=== PATIENT | female | born 1990 | race African-American/Black ===

== ENCOUNTER 2020-10-28 21:03 | Emergency (ER) | payer OTHER ==
[~2020-10-28] VITALS: Ht 160 cm; Wt 67.3 kg
[2020-10-28 21:04] VITALS: BP 125/76
[2020-10-28] MEDS ORDERED: HYDR25OIN TOP (22:10)
[2020-10-28] MEDS ORDERED: BENA25CA4 PO (22:10)
[2020-10-28] MEDS ORDERED: PRED20TA PO (22:10)
[2020-10-28] MEDS ORDERED: predniSONE 20 MG TAB PO ONE (22:10)
[2020-10-28] MEDS ORDERED: diphenhydrAMINE 50MG CAP PO ONE (22:10)
== END 2020-10-28 22:29 | disposition home or self-care (01) ==
LOC: M ED 21:03
DX: L50.9 Urticaria, unspecified (principal); Z84.89 Family history of other specified conditions
CPT/HCPCS: 99283; J7512

== ENCOUNTER 2020-12-20 15:16 | Emergency (ER) | payer OTHER ==
[~2020-12-20] VITALS: Ht 160 cm; Wt 68.2 kg
[~2020-12-20 15:16] MED LIST: BENA25CA4 PO; HYDR25OIN TOP; PRED20TA PO
[2020-12-20 19:18] LABS: BASO % 0.5 % (0.0-1.0); EOS # 0.2 10^3/uL (0.0-0.5); EOS % 2.9 % (0.0-3.0); HEMATOCRIT 41.4 % (36.0-47.0); HEMOGLOBIN 13.3 g/dl (12.0-15.5); LYMPH % 49.3 % (24.0-44.0); MEAN CORPUSCULAR HEMOGLOBIN 27.4 pg (27.0-33.0); MEAN CORPUSCULAR HGB CONC 32.1 g/dl (32.0-36.5); MEAN CORPUSCULAR VOLUME 85.4 fl (80.0-96.0); MONO # 0.4 10^3/uL (0.0-0.8); MONO % 6.4 % (2.0-8.0); NEUTROPHILS # 2.5 10^3/uL (1.5-8.5); NEUTROPHILS % 40.7 % (36.0-66.0); PLATELET COUNT, AUTOMATED 226 10^3/uL (150-450); RED BLOOD COUNT 4.85 10^6/uL (4.00-5.40); WHITE BLOOD COUNT 6.1 10^3/uL (4.0-10.0)
--- NOTE | 2020-12-20 19:28 | REP ---
INDICATION: llq pain at csec scar. COMPARISON: None. TECHNIQUE: Transabdominal and transvaginal scanning were performed. FINDINGS: Uterine dimensions are normal at 8.0 x 4.6 x 5.6 cm. Endometrial echo is X 1.2 cm thick and centrally placed. No free fluid is seen in the cul-de-sac. Visualized bladder conteh are smooth. The right ovary has dimensions of 4.3 x 4.5 x 4.8 cm. It's Doppler flow is normal with a resistive index of 0.76. There is a right ovarian cyst measuring 3.8 x 3.8 x 4.3 cm. No mural nodularity or septal or wall thickening seen. The left ovary dimensions are normal as well at 2.5 x 2.5 x 3 point cm. It's Doppler flow was normal with resistive index of 0.59. IMPRESSION: Simple 4.3 cm cystic area right ovary. Otherwise normal pelvic sonography.. <Electronically signed by Shashi Vigil > 12/20/201924
[2020-12-20 19:43] LABS: CK-MB VALUE MASS < 1.0 NG/ML (<3.6); CPK CREATINE PHOSPHOKINASE 247 U/L (26-192); MAGNESIUM LEVEL 2.2 MG/DL (1.8-2.4); TROPONIN I < 0.02 NG/ML (< 0.10)
[2020-12-20 19:54] VITALS: BP 120/67
--- NOTE | 2020-12-20 20:11 | REPVR ---
PROCEDURE INFORMATION: Exam: CT Head Without Contrast Exam date and time: 12/20/2020 7:58 PM Age: 30 years old Clinical indication: Dizziness; Additional info: Dizzy/near syncope TECHNIQUE: Imaging protocol: Computed tomography of the head without contrast. Axial and coronal reformatted images were created and reviewed. Radiation optimization: All CT scans at this facility use at least one of these dose optimization techniques: automated exposure control; mA and/or kV adjustment per patient size (includes targeted exams where dose is matched to clinical indication); or iterative reconstruction. COMPARISON: No relevant prior studies available. FINDINGS: Brain: No CT evidence of acute intracranial hemorrhage or acute territorial infarction. No significant mass effect or midline shift. Basal cisterns patent. Cerebral ventricles: Normal in size and configuration. Paranasal sinuses: Mild ethmoid mucosal thickening. Mastoid air cells: Grossly unremarkable. Bones/joints: No acute osseous abnormality. Soft tissues: Grossly unremarkable. IMPRESSION: 1. No CT evidence of acute intracranial pathology. 2. Additional findings, as above. Electronically signed by: Bunny Walters On 12/20/2020 20:11:03 PM
[2020-12-20 20:41] LABS: GC DNA AMPLIFICATION NEGATIVE (NEGATIVE)
[2020-12-20] MEDS ORDERED: CIPR-249 PO ×2 (21:11→21:28)
--- NOTE | 2020-12-21 21:22 | ECGEPIP ---
[facility] - ED Test Date: 2020-12-20 Pat Name: DENISE MILNER Department: Room: - Gender: Female Vice President Integrated: : 1990 Requested By: MELINA PEARCE PA-C Order Number: [id number] Reading MD: Rebecca Aldrich Measurements Intervals [place] Rate: 63 P: 23 CO: 180 QRS: 29 QRSD: 72 T: 22 QT: 390 QTc: 399 Interpretive Statements Sinus rhythm with premature atrial complexes No prior Electronically Signed on 12-21-2020 21:22:40 EDT by Rebecca Aldrich
== END 2020-12-20 21:31 | disposition home or self-care (01) ==
LOC: M ED 15:16
DX: E86.0 Dehydration (principal); N39.0 Urinary tract infection, site not specified; N83.201 Unspecified ovarian cyst, right side

== ENCOUNTER 2021-06-03 09:10 | Day surgery (SDC) | payer OTHER ==
[~2021-06-03] VITALS: Ht 160 cm; Wt 73.9 kg
[~2021-06-03 09:10] MED LIST changes: +ACET1TAB55; +ACETAMINOPHEN *IV* 1,000 MG IV ONE; +CIPR-249 PO; +HYDROmorphone HCL 2MG/ML 1ML VIAL As Ordered ONE; +IBUP80TA; +KETOROLAC 60MG 2ML VIAL As Ordered ONE; +LIDOCAINE 2% 100MG/5ML SDV (FOR ANES.) As Ordered ONE; +LORA-674; +LR 1,000 ML IV ONE; +MIDAZOLAM INJ 2MG/2ML VIAL (J2250 PER 1MG) As Ordered ONE; +ONDANSETRON 4MG/2ML VIAL As Ordered ONE; +OXYC-517; +ROCURONIUM BROMIDE 50 MG/5 ML VIAL As Ordered ONE; +dexameTHASONE 4 MG/ML 1ML VIAL (J1100 PER 1MG) As Ordered ONE; +fentaNYL 100 MCG/2 ML INJECTION (J3010) As Ordered ONE; +propofoL 200 MG/20 ML VIAL As Ordered ONE
[2021-06-03 09:54] LABS: HEMATOCRIT 40.3 % (36.0-47.0); HEMOGLOBIN 12.4 g/dl (12.0-15.5)
[2021-06-03 10:23] LABS: HCG, SERUM QUALITATIVE NEGATIVE (NEGATIVE)
[2021-06-03] MEDS ORDERED: BUPIVACAINE HCL 0.25% 30ML VIAL As Ordered ONE (11:34)
[2021-06-03] MEDS ORDERED: ePHEDrine SULFATE 25 MG/5 ML(5MG/ML) SYRINGE As Ordered ONE (12:09)
[2021-06-03] MEDS ORDERED: PHENYLephrine 500MCG 5ML (100MCG/ML) SYRINGE As Ordered ONE (12:15)
[2021-06-03] MEDS ORDERED: ACETAMINOPHEN 1000MG 100ML IV BTL (OFIRMEV) (J0131 PER 10MG) As Ordered ONE (12:17)
[2021-06-03] MEDS ORDERED: SUGAMMADEX SODIUM 500 MG/5 ML VIAL (BRIDION) As Ordered ONE (12:20)
[2021-06-03] MEDS ORDERED: ROCURONIUM BROMIDE 50 MG/5 ML VIAL As Ordered ONE (12:43)
[2021-06-03] MEDS ORDERED: propofoL 200 MG/20 ML VIAL As Ordered ONE (13:21)
[2021-06-03] MEDS ORDERED: SILVER NITRATE APPLICATOR As Ordered ONE ×3 (13:22→13:24)
[2021-06-03] MEDS: fentaNYL 100 MCG/2 ML INJECTION (J3010) IV PRN ×2 (13:55→14:00)
[2021-06-03] MEDS ORDERED: fentaNYL 100 MCG/2 ML INJECTION (J3010) As Ordered ONE (13:58)
[2021-06-03] MEDS ORDERED: oxyCODONE 5MG TAB PO PRN (14:00)
[2021-06-03] MEDS ORDERED: LR 1,000 ML IV SCH (14:00)
[2021-06-03] MEDS ORDERED: ONDANSETRON 4MG/2ML VIAL IV PRN (14:00)
[2021-06-03 17:06] VITALS: BP 115/67
== END 2021-06-03 18:14 | disposition home or self-care (01) ==
LOC: M SDC 09:10
PROVIDERS: ATTEND Obstetrics & Gynecology
DX: N83.8 Other noninflammatory disorders of ovary, fallopian tube and broad ligament (principal); D27.0 Benign neoplasm of right ovary; N83.511 Torsion of right ovary and ovarian pedicle; Z79.899 Other long term (current) drug therapy
CPT/HCPCS: 36415; 58661; 84703; 85014; 85018; 86850; 86900; 86901; 88305; J0131; J1100; J1170; J1885; J2250; J2370; J2405; J3010